=== PATIENT | female | born 1940 | race African-American/Black ===

== ENCOUNTER 2024-04-07 04:37 | Emergency (ER) | payer OTHER ==
[2024-04-07] VITALS (11 sets, daily range): BP systolic 90; BP diastolic 43; PULSE 52–90; RESP 14–22; TEMP 33.9; O2SAT 98
[~2024-04-07] VITALS: Ht 167.6 cm; Wt 75.0 kg
[2024-04-07] MEDS: ALBUTEROL (0.083%) 2.5MG/3ML NEB HHN ONE (04:54)
[2024-04-07 05:18] LABS: BG BASE EXCESS -18.4 mmol/L (-2.0-3.0); BG CARBOXYHEMOGLOBIN 0.6 % (0.5-1.5); BG DEOXYHEMOGLOBIN 3.1 % (0.0-5.0); BG FRACTION INSPIRED OXYGEN 100; BG HCO3 ACT 10.5 mmol/L (21.0-28.0); BG METHEMOGLOBIN 0.2 % (0.5-1.5); BG OXYGEN SATURATION 96.9 % (94.0-98.0); BG OXYHEMOGLOBIN 96.1 % (94.0-98.0); BG PCO2 36.3 mmHg (32.0-45.0); BG PH 7.081 (7.350-7.450); BG PO2 115.6 mmHg (83.0-108.0); BG SAMPLE SITE LEFT RADIAL; BG TOTAL HEMOGLOBIN 11.5 g/dL (12.0-16.0); BG VENT MODE MASK - NRB
[2024-04-07] MEDS: DEXTROSE 50% WATER 50ML SYRINGE IV ONE (05:24)
[2024-04-07] MEDS: SODIUM BICARBONATE 8.4% 50MEQ/50ML SYR IV ONE (05:24)
[2024-04-07] MEDS: CALCIUM CHLORIDE 1GM/10ML SYR IV ONE (05:24)
[2024-04-07] MEDS: FUROSEMIDE 100MG/10ML VIAL IV STA (05:24)
[2024-04-07] MEDS: INSULIN REGULAR (HUMULIN R) 1000UNITS/10ML VIAL IV ONE (05:34)
[2024-04-07 06:03] LABS: HEMATOCRIT. 34.3 % (36.0-48.0); HEMOGLOBIN. 10.5 g/dL (12.0-16.0); MEAN CORPUSCULAR HEMOGLOBIN 28.5 pg (28.0-32.0); MEAN CORPUSCULAR HGB CONC 30.8 g/dL (31.0-37.0); MEAN CORPUSCULAR VOLUME 92.5 fL (81.0-99.0); MEAN PLATELET VOLUME 10.4 fl (7.4-10.4); PLATELET 224 x1000/uL (130-400); RED CELL DISTRIBUTION WIDTH 16.7 % (11.6-14.6)
[2024-04-07 06:04] LABS: CARBON DIOXIDE 12 mEq/L (21-32); CHLORIDE 94 mEq/L (98-107); INR 2.5; POTASSIUM 4.3 mEq/L (3.5-5.1); PROTHROMBIN TIME 26.1 sec (9.6-11.0); SODIUM 134 mEq/L (136-145)
[2024-04-07 06:05] LABS: CALCIUM 11.6 mg/dL (8.7-10.4)
[2024-04-07 06:09] LABS: CREATININE 4.8 mg/dL (0.6-1.0)
[2024-04-07 06:10] LABS: GLUCOSE 81 mg/dL (70-105); UREA NITROGEN BLOOD 35 mg/dL (9-23)
[2024-04-07 06:11] LABS: ALANINE AMINOTRANSFERASE 508 IU/L (10-49); ALBUMIN 4.2 g/dL (3.2-4.8); ASPARTATE AMINOTRANSFERASE 751 IU/L (<34)
[2024-04-07 06:12] LABS: BILIRUBIN DIRECT 1.5 mg/dL (<=3.0); PROTEIN TOTAL 7.5 g/dL (6.0-8.3)
[2024-04-07 06:34] LABS: DIFFERENTIAL COMMENT 1
[2024-04-07] MEDS: FUROSEMIDE 40MG/4ML VIAL IV NR (06:38)
[2024-04-07] MEDS: SODIUM CHLORIDE 0.9% (SEPSIS BOLUS) IV ONE (06:38)
[2024-04-07 06:39] LABS: LACTIC ACID 16.8 mmol/L (0.4-2.0)
[2024-04-07 06:39] LABS: TROPONIN I HIGH SENSITIVITY 742 ng/L (3.0-34)
[2024-04-07] MEDS: PIPERACILLIN/TAZO 3.375G/50ML 50 ML IV ONE (06:39)
[2024-04-07] MEDS: ATROPINE SULFATE 1MG/10ML SYR IV ONE (06:39)
[2024-04-07] MEDS: NOREPINEPHRINE 8MG/250ML PMX 250 ML IV STA (07:09)
[2024-04-07] MEDS: SODIUM CHLORIDE 0.9% 2,000 ML IV ONE (07:22)
[2024-04-07] MEDS: ETOMIDATE 2MG/ML 10ML VIAL IV ONE (08:14)
[2024-04-07] MEDS: SUCCINYLCHOLINE CHLORIDE 200MG/10ML IV ONE (08:14)
[2024-04-07] MEDS: PROPOFOL 10MG/ML 100ML 100 ML IV ONE (08:29)
[2024-04-07 09:25] LABS: AMMONIA < 17 uMol/L (<32)
[2024-04-07] MEDS ORDERED: DOCUSATE SODIUM 100MG CAPSULE PO PRN (10:00)
[2024-04-07] MEDS ORDERED: DOPAMINE 800MG PREMIX (DOUBLE) 250 ML IV PRN (10:00)
[2024-04-07] MEDS ORDERED: GUAIFENESIN 200MG/10ML SUGAR FREE UDC PO PRN (10:00)
[2024-04-07] MEDS ORDERED: CLONIDINE 0.1MG TABLET PO PRN (10:00)
[2024-04-07] MEDS ORDERED: FENTANYL CITRATE/PF 1,000 MCG in SODIUM CHLORIDE 0.9% 80 ML IV PRN ×2 (10:00→11:15)
[2024-04-07] MEDS ORDERED: ONDANSETRON HCL 4MG/2ML INJ IV PRN (10:00)
[2024-04-07] MEDS ORDERED: DEXTROSE 50% WATER 50ML SYRINGE IV PRN (10:00)
[2024-04-07] MEDS ORDERED: IPRATROPIUM/ALBUTEROL 0.5-3(2.5)MG/3ML NEB HHN PRN (10:00)
[2024-04-07] MEDS ORDERED: ENOXAPARIN 40MG/0.4ML SYR SUBCUT SCH (10:00)
[2024-04-07] MEDS ORDERED: MAGNESIUM/ALUMINUM HYDROXIDE/SIMETHICONE 30ML UDC PO PRN (10:00)
[2024-04-07] MEDS ORDERED: FENTANYL 2500MCG/250ML PMX 250 ML IV ONE (10:45)
[2024-04-07 11:08] LABS: IRON 162 ug/dL (50-170)
[2024-04-07 11:11] LABS: TOTAL IRON BINDING CAPACITY 228 ug/dl (250-425)
[2024-04-07 11:29] LABS: TROPONIN I HIGH SENSITIVITY 659 ng/L (3.0-34)
[2024-04-07 11:44] LABS: FOLIC ACID (FOLATE) SERUM > 20.00 ng/mL (>5.38)
[2024-04-07] MEDS: SODIUM BICARBONATE 8.4% 50MEQ/50ML SYR IV NR (11:47)
[2024-04-07] MEDS: VANCOMYCIN 750MG PREMIX 150 ML IV SCH (11:47)
[2024-04-07 11:55] LABS: BG BASE EXCESS -19.3 mmol/L (-2.0-3.0); BG CARBOXYHEMOGLOBIN 0.3 % (0.5-1.5); BG DEOXYHEMOGLOBIN 0.1 % (0.0-5.0); BG FRACTION INSPIRED OXYGEN 100; BG HCO3 ACT 9.7 mmol/L (21.0-28.0); BG METHEMOGLOBIN 0.3 % (0.5-1.5); BG OXYGEN SATURATION 99.9 % (94.0-98.0); BG OXYHEMOGLOBIN 99.3 % (94.0-98.0); BG PCO2 34.6 mmHg (32.0-45.0); BG PH 7.067 (7.350-7.450); BG PO2 345.9 mmHg (83.0-108.0); BG SAMPLE SITE RIGHT RADIAL; BG VENT MODE VENT - AC
[2024-04-07 11:59] LABS: VITAMIN B12 SERUM > 2000 pg/mL (211-911)
[2024-04-07] MEDS: VANCOMYCIN 1G PREMIX 200 ML IV ONE (12:15)
[2024-04-07] MEDS: METHYLPREDNISOLONE SOD SUCC 40MG/ML (ACT-O-VIAL) IV SCH (12:15)
[2024-04-07] MEDS: IPRATROPIUM/ALBUTEROL 0.5-3(2.5)MG/3ML NEB HHN SCH (13:00)
[2024-04-07] MEDS: BLOOD SUGAR DIAGNOSTIC STRIP TEST SCH (13:00)
[2024-04-07] MEDS: INSULIN LISPRO 100 UNITS/ML SUBCUT SCH (13:20)
[2024-04-07] MEDS ORDERED: NOREPINEPHRINE 8MG/250ML PMX 250 ML IV PRN (13:30)
[2024-04-07 13:57] LABS: NUCLEATED RED BLOOD CELLS 29 /100 WBC
[2024-04-07 13:58] LABS: ANISOCYTOSIS 1+; PLATELET ESTIMATE NORMAL
[2024-04-07] MEDS ORDERED: PIPERACILLIN/TAZO 3.375G/50ML 50 ML IV SCH ×2 (14:00→21:00)
[2024-04-07 14:15] LABS: HEPATITIS B SURFACE ANTIGEN NEGATIVE (Negative)
[2024-04-07] MEDS: DOXYCYCLINE 100MG/100ML 100 ML IV SCH (14:30)
[2024-04-07 14:36] LABS: HEPATITIS A AB IGM NEGATIVE (Negative); HEPATITIS B CORE AB IGM NEGATIVE (Negative)
[2024-04-07 14:37] LABS: HEPATITIS C AB NON REACTIVE (Neg) (Negative)
[2024-04-07] MEDS: DOPAMINE 800MG PREMIX (DOUBLE) 250 ML IV PRN (14:44)
[2024-04-07] MEDS ORDERED: VANCOMYCIN 750MG PREMIX 150 ML IV NR (15:00)
[2024-04-07] MEDS: DEXTROSE 10% WATER 500 ML IV NR (17:00)
[2024-04-07 19:12] LABS: CHLORIDE 97 mEq/L (98-107); POTASSIUM 4.7 mEq/L (3.5-5.1); SODIUM 136 mEq/L (136-145)
[2024-04-07] MEDS ORDERED: EPINEPHRINE 10 MG in SODIUM CHLORIDE 0.9% 240 ML IV PRN (19:15)
[2024-04-07] MEDS: EPINEPHRINE 10 MG in SODIUM CHLORIDE 0.9% 240 ML IV PRN (19:58)
[2024-04-07 20:32] LABS: CREATININE 4.9 mg/dL (0.6-1.0); GLUCOSE 119 mg/dL (70-105)
[2024-04-07 20:33] LABS: ALBUMIN 3.9 g/dL (3.2-4.8); CALCIUM 10.4 mg/dL (8.7-10.4)
[2024-04-07 20:34] LABS: ALANINE AMINOTRANSFERASE 575 IU/L (10-49); ASPARTATE AMINOTRANSFERASE > 1000 IU/L (<34)
[2024-04-07 20:35] LABS: CREATINE KINASE 910 IU/L (34-145); CREATINE KINASE MB FRACTION 5.5 ng/mL (0.5-3.6)
[2024-04-07 20:43] LABS: BILIRUBIN TOTAL 3.1 mg/dL (0.1-1.0); UREA NITROGEN BLOOD 35 mg/dL (9-23)
[2024-04-07 20:53] LABS: PHOSPHORUS 6.4 mg/dL (2.5-4.9)
[2024-04-07 21:01] LABS: CARBON DIOXIDE < 10 mEq/L (21-32)
== END 2024-04-07 22:40 ==
LOC: ER 04:37
DX: A41.9 Sepsis, unspecified organism (principal); R65.21 Severe sepsis with septic shock; G93.40 Encephalopathy, unspecified; E11.22 Type 2 diabetes mellitus with diabetic chronic kidney disease; E11.649 Type 2 diabetes mellitus with hypoglycemia without coma; N18.6 End stage renal disease; Z99.2 Dependence on renal dialysis; Z79.899 Other long term (current) drug therapy; R00.1 Bradycardia, unspecified; I46.9 Cardiac arrest, cause unspecified
CPT/HCPCS: 80076; 80053; 80048; 82140; 82550; 82553; 82607; 82746; 82962; 83036; 83540; 83550; 83605; 83735; 84100; 85025; 85610; 87340; 87040; 87086; 84484; 36415; 86705; 86709; 84145; 71045; 93970; 94640; 82805; 82375; 31500 ×2; 93005; 36556; 96367; 96368; 92950; 96361; 96365; 96366; 96375; 96376; 99291; 36600; J3370; J0461; J3490 ×4; J1265; J1940 ×2; J1815; J2920; J2543; J2704; J7030; 94002; 94664; J3010; J7050